=== PATIENT | male | born 1950 | race Caucasian/White ===

== ENCOUNTER → 2016-10-20 | Outpatient (CLI) | payer OTHER ==
[~2016-10-20] MED LIST: FOLIC ACID 11 MG/TA1 PO; LOPRESSOR 550 MG/TAB PO; MAG-AL LIQUID 230 ML PO; MULTI VITAMINS1 TAB PO; NORVASC 10MG10 MG PO; SEROQUEL 2525 MG/TAB PO; SEROQUEL50 MG PO; THIAMINE 1100 MG/TAB PO; ZESTRIL 20MG TA20 MG PO
[2016-10-20 14:00] LABS: HEMATOCRIT 40.8 % (42.0-52.0); HEMOGLOBIN 13.8 g/dl (13.5-18.0); MEAN CELL VOLUME 97 fl (80.0-100.0); MEAN CORPUSCULAR HEMOGLOBIN 33 pg (27.0-31.0); MEAN CORPUSCULAR HGB CONC 34 g/dl (33.0-37.0); MEAN PLATELET VOLUME 11.2 fl (7.4-10.4); PLATELET COUNT 251 K/mm3 (130-400); RED BLOOD COUNT 4.21 M/mm3 (4.20-5.60); REDCELL DISTRIBUTION WIDTH-CV 12.7 % (11.5-14.5); WHITE BLOOD COUNT 9.6 K/mm3 (4.8-10.8)
[2016-10-20 14:13] LABS: CALCIUM 9.7 mg/dL (8.4-10.2); CREATININE, serum 1.61 mg/dL (0.66-1.25); POTASSIUM 4.9 mmol/L (3.4-5.0)
== END ==
LOC: COL.LAB 13:33
DX: R03.0 Elevated blood-pressure reading, without diagnosis of hypertension (principal); R53.1 Weakness

== ENCOUNTER → 2016-10-30 | Outpatient (CLI) | payer OTHER ==
[2016-10-30 10:45] LABS: ADJUSTED CALCIUM 9.2 mg/dL (8.4-10.2); ALBUMIN 4.5 gm/dL (3.5-5.0); BILIRUBIN,TOTAL 0.6 mg/dL (0.0-1.0); CALCIUM 9.6 mg/dL (8.4-10.2); CREATININE, serum 1.45 mg/dL (0.66-1.25); POTASSIUM 4.9 mmol/L (3.4-5.0); TOTAL PROTEIN 7.7 gm/dL (6.4-8.2)
[2016-10-30 11:14] LABS: THYROID STIMULATING HORMONE 1.36 uIU/mL (0.465-4.680)
== END ==
LOC: COL.LAB 09:26
DX: I12.9 Hypertensive chronic kidney disease with stage 1 through stage 4 chronic kidney disease, or unspecified chronic kidney disease (principal); G62.9 Polyneuropathy, unspecified

== ENCOUNTER 2016-11-09 18:39 | Emergency (ER) | payer OTHER ==
[~2016-11-09] VITALS: Ht 193 cm; Wt 81.8 kg
[2016-11-09 18:44] VITALS: BP 178/84; TEMP 97.8
[2016-11-09 22:04] VITALS: PULSE 65
== END 2016-11-09 22:04 | disposition home or self-care (01) ==
LOC: COL.ER 18:39
DX: S16.1XXA Strain of muscle, fascia and tendon at neck level, initial encounter (principal); S46.911A Strain of unspecified muscle, fascia and tendon at shoulder and upper arm level, right arm, initial encounter; M79.621 Pain in right upper arm; V43.52XA Car driver injured in collision with other type car in traffic accident, initial encounter; Y92.410 Unspecified street and highway as the place of occurrence of the external cause

== ENCOUNTER → 2017-02-23 | Outpatient (CLI) | payer OTHER ==
[2017-02-23 11:35] LABS: HEMATOCRIT 39.9 % (42.0-52.0); HEMOGLOBIN 12.9 g/dl (13.5-18.0); MEAN CELL VOLUME 100 fl (80.0-100.0); MEAN CORPUSCULAR HEMOGLOBIN 32 pg (27.0-31.0); MEAN CORPUSCULAR HGB CONC 32 g/dl (33.0-37.0); MEAN PLATELET VOLUME 11.4 fl (7.4-10.4); PLATELET COUNT 216 K/mm3 (130-400); RED BLOOD COUNT 3.99 M/mm3 (4.20-5.60); REDCELL DISTRIBUTION WIDTH-CV 12.5 % (11.5-14.5); WHITE BLOOD COUNT 8.4 K/mm3 (4.8-10.8)
[2017-02-23 11:36] LABS: ADJUSTED CALCIUM 9.2 mg/dL (8.4-10.2); ALBUMIN 4.3 gm/dL (3.5-5.0); BILIRUBIN,TOTAL 0.5 mg/dL (0.0-1.0); CALCIUM 9.4 mg/dL (8.4-10.2); CREATININE, serum 1.17 mg/dL (0.66-1.25); POTASSIUM 4.1 mmol/L (3.4-5.0); TOTAL PROTEIN 7.8 gm/dL (6.4-8.2)
== END ==
LOC: COL.LAB 10:49
DX: I10 Essential (primary) hypertension (principal); R09.89 Other specified symptoms and signs involving the circulatory and respiratory systems

== ENCOUNTER → 2017-04-14 | Outpatient (CLI) | payer MEDICARE, OTHER | LOC: COL.VAS 09:12 | DX: I70.0 Atherosclerosis of aorta (principal) ==

== ENCOUNTER → 2017-06-30 | Outpatient (CLI) | payer MEDICARE | LOC: COL.RAD 10:44 | DX: I77.1 Stricture of artery (principal); I70.203 Unspecified atherosclerosis of native arteries of extremities, bilateral legs; I70.92 Chronic total occlusion of artery of the extremities; M47.816 Spondylosis without myelopathy or radiculopathy, lumbar region | CPT/HCPCS: Q9967 ==

== ENCOUNTER 2017-07-06 07:37 | Day surgery (SDC) | payer MEDICARE ==
[~2017-07-06] VITALS: Ht 193.1 cm; Wt 69.0 kg
[2017-07-06] VITALS (11 sets, daily range): BP systolic 117–166; BP diastolic 81–103; PULSE 62–81; TEMP 97.4
[2017-07-06] MEDS ORDERED: NORVASC 10MG10 MG PO (08:33)
[2017-07-06] MEDS ORDERED: LOPRESSOR 550 MG/TAB PO (08:34)
[2017-07-06 08:37] LABS: HEMATOCRIT 46.3 % (42.0-52.0); HEMOGLOBIN 15.4 g/dl (13.5-18.0); MEAN CELL VOLUME 96 fl (80.0-100.0); MEAN CORPUSCULAR HEMOGLOBIN 32 pg (27.0-31.0); MEAN CORPUSCULAR HGB CONC 33 g/dl (33.0-37.0); MEAN PLATELET VOLUME 11.6 fl (7.4-10.4); PLATELET COUNT 226 K/mm3 (130-400); RED BLOOD COUNT 4.83 M/mm3 (4.20-5.60); REDCELL DISTRIBUTION WIDTH-CV 12.6 % (11.5-14.5)
[2017-07-06 08:40] LABS: PROTHROMBIN TIME 11.7 SECONDS (9.7-12.8)
[2017-07-06 09:08] LABS: CREATININE, serum 1.16 mg/dL (0.66-1.25)
== END 2017-07-06 16:27 | disposition home or self-care (01) ==
LOC: COL.CAR 07:37
PROVIDERS: Radiology Diagnostic Radiology
DX: I70.213 Atherosclerosis of native arteries of extremities with intermittent claudication, bilateral legs (principal); I77.1 Stricture of artery; I10 Essential (primary) hypertension; I73.9 Peripheral vascular disease, unspecified
CPT/HCPCS: J1644; J2250; J2405; J2704; J3010; J7030; J7120; Q9967

== ENCOUNTER 2018-01-07 19:22 | Emergency (ER) | payer MEDICARE ==
[~2018-01-07] VITALS: Ht 193 cm; Wt 72.7 kg
[2018-01-07 19:29] VITALS: TEMP 98
[2018-01-07 19:56] LABS: BASO # 0.1 (0.0-0.2); BASO % 0.6 % (0.0-2.0); EOS # 0.1 (0.0-0.7); EOS % 0.9 % (0-4.0); GRAN # 8.4 (1.4-6.5); GRAN % 76.2 % (42.2-75.2); HEMOGLOBIN 10.8 g/dl (13.5-18.0); LYMPH # 1.5 (1.2-3.4); LYMPH % 13.5 % (20.0-51.0); MEAN CELL VOLUME 94 fl (80.0-100.0); MEAN CORPUSCULAR HEMOGLOBIN 32 pg (27.0-31.0); MEAN CORPUSCULAR HGB CONC 34 g/dl (33.0-37.0); MEAN PLATELET VOLUME 13.8 fl (7.4-10.4); MONO # 0.9 (0.1-0.6); PLATELET COUNT 238 K/mm3 (130-400); RED BLOOD COUNT 3.37 M/mm3 (4.20-5.60); REDCELL DISTRIBUTION WIDTH-CV 15.9 % (11.5-14.5)
[2018-01-07 19:57] LABS: HEMATOCRIT 31.6 % (42.0-52.0)
[2018-01-07 20:07] LABS: ALBUMIN 3.9 gm/dL (3.5-5.0); BILIRUBIN,TOTAL 19.4 mg/dL (0.0-1.0); C-REACTIVE PROTEIN 3.2 mg/dL (0.0-0.9); CALCIUM 9.4 mg/dL (8.4-10.2); CREATININE, serum 1.63 mg/dL (0.66-1.25); TOTAL PROTEIN 8.1 gm/dL (6.4-8.2)
[2018-01-07 21:50] VITALS: BP 132/76; PULSE 92
== END 2018-01-07 21:50 | disposition home or self-care (01) ==
LOC: COL.ER 19:22
PROVIDERS: Family Medicine
DX: K83.1 Obstruction of bile duct (principal); K86.9 Disease of pancreas, unspecified
CPT/HCPCS: J2405; J7030; Q9967

== ENCOUNTER 2018-01-10 13:34 | Day surgery (SDC) | payer MEDICARE ==
[2018-01-10] VITALS (7 sets, daily range): BP systolic 111–154; BP diastolic 73–81; PULSE 81–116; TEMP 97.3–98.1
[~2018-01-10] VITALS: Ht 193 cm; Wt 65.7 kg
== END 2018-01-10 17:30 | disposition home or self-care (01) ==
LOC: SDCO 13:34
DX: K83.1 Obstruction of bile duct (principal); K83.8 Other specified diseases of biliary tract; K86.89 Other specified diseases of pancreas; I12.9 Hypertensive chronic kidney disease with stage 1 through stage 4 chronic kidney disease, or unspecified chronic kidney disease; N18.9 Chronic kidney disease, unspecified; D63.1 Anemia in chronic kidney disease
CPT/HCPCS: C1769; C2625; J2405; J2704; J3010; J7030; Q9967

== ENCOUNTER 2018-02-17 13:48 | Observation (INO) | payer MEDICARE ==
[~2018-02-17] VITALS: Ht 162.6 cm; Wt 59.5 kg
[2018-02-17 14:27] LABS: BASO % 0.6 % (0.0-2.0); EOS # 0.1 (0.0-0.7); GRAN % 70.4 % (42.2-75.2); HEMOGLOBIN 10.1 g/dl (13.5-18.0); LYMPH # 1.4 (1.2-3.4); LYMPH % 19.6 % (20.0-51.0); MEAN CELL VOLUME 98 fl (80.0-100.0); MEAN CORPUSCULAR HEMOGLOBIN 32 pg (27.0-31.0); MEAN CORPUSCULAR HGB CONC 33 g/dl (33.0-37.0); MEAN PLATELET VOLUME 10.6 fl (7.4-10.4); MONO # 0.6 (0.1-0.6); MONO % 8.1 % (1.7-9.3); PLATELET COUNT 227 K/mm3 (130-400); RED BLOOD COUNT 3.15 M/mm3 (4.20-5.60)
[2018-02-17 14:28] LABS: HEMATOCRIT 30.9 % (42.0-52.0)
[2018-02-17 14:34] LABS: ALBUMIN 3.8 gm/dL (3.5-5.0); BILIRUBIN,TOTAL 1.5 mg/dL (0.0-1.0); CALCIUM 9.1 mg/dL (8.4-10.2); CREATININE, serum 0.89 mg/dL (0.66-1.25); POTASSIUM 3.4 mmol/L (3.4-5.0); TOTAL PROTEIN 7.4 gm/dL (6.4-8.2)
[2018-02-17] MEDS ORDERED: PHENERGAN 25 TA25 MG PO ×2 (15:05)
[2018-02-17] MEDS ORDERED: PERCOCET 325 MG1 TA2 PO (15:05)
[2018-02-17] MEDS ORDERED: PRINIVIL20 MG PO (17:34)
[2018-02-17 18:27] VITALS: BP 190/78; PULSE 79; TEMP 98.9
[2018-02-17 21:39] VITALS: BP 159/88; PULSE 96; TEMP 98.3
[2018-02-18 01:26] VITALS: BP 160/77; PULSE 86; TEMP 98.3
[2018-02-18 04:41] VITALS: BP 170/74; PULSE 83; TEMP 98
[2018-02-18 06:19] LABS: BASO % 0.5 % (0.0-2.0); EOS # 0.1 (0.0-0.7); EOS % 1.8 % (0-4.0); GRAN # 3.3 (1.4-6.5); GRAN % 53.6 % (42.2-75.2); LYMPH % 31.7 % (20.0-51.0); MEAN CELL VOLUME 98 fl (80.0-100.0); MEAN CORPUSCULAR HGB CONC 32 g/dl (33.0-37.0); MEAN PLATELET VOLUME 11.5 fl (7.4-10.4); MONO # 0.8 (0.1-0.6); MONO % 12.2 % (1.7-9.3); PLATELET COUNT 168 K/mm3 (130-400); RED BLOOD COUNT 2.87 M/mm3 (4.20-5.60); REDCELL DISTRIBUTION WIDTH-CV 13.6 % (11.5-14.5)
[2018-02-18 06:27] LABS: MEAN CORPUSCULAR HEMOGLOBIN 31 pg (27.0-31.0)
[2018-02-18 06:36] LABS: ALBUMIN 3.2 gm/dL (3.5-5.0); BILIRUBIN,TOTAL 1.3 mg/dL (0.0-1.0); CALCIUM 8.4 mg/dL (8.4-10.2); CREATININE, serum 0.73 mg/dL (0.66-1.25); POTASSIUM 3.3 mmol/L (3.4-5.0); TOTAL PROTEIN 6.4 gm/dL (6.4-8.2)
[2018-02-18 08:19] VITALS: BP 154/77; BP 154/778; PULSE 74; TEMP 97.8
[2018-02-18 11:33] VITALS: BP 151/75; PULSE 93; TEMP 97.8
[2018-02-18 16:05] VITALS: BP 159/89; PULSE 88; TEMP 98
[2018-02-18 20:00] VITALS: BP 165/79; PULSE 85; TEMP 98.4
[2018-02-19] VITALS: BP 165/63; PULSE 83; TEMP 98.2
[2018-02-19 04:00] VITALS: BP 156/72; PULSE 82; TEMP 98
[2018-02-19 06:20] LABS: BASO % 0.5 % (0.0-2.0); EOS # 0.1 (0.0-0.7); EOS % 2.5 % (0-4.0); GRAN # 3.2 (1.4-6.5); GRAN % 56.7 % (42.2-75.2); LYMPH # 1.7 (1.2-3.4); LYMPH % 30.6 % (20.0-51.0); MEAN CELL VOLUME 97 fl (80.0-100.0); MEAN CORPUSCULAR HGB CONC 33 g/dl (33.0-37.0); MEAN PLATELET VOLUME 11.6 fl (7.4-10.4); MONO # 0.5 (0.1-0.6); MONO % 9.5 % (1.7-9.3); PLATELET COUNT 168 K/mm3 (130-400); RED BLOOD COUNT 2.86 M/mm3 (4.20-5.60); REDCELL DISTRIBUTION WIDTH-CV 13.4 % (11.5-14.5)
[2018-02-19 06:37] LABS: ALBUMIN 3.1 gm/dL (3.5-5.0); BILIRUBIN,TOTAL 1.1 mg/dL (0.0-1.0); CALCIUM 8.3 mg/dL (8.4-10.2); CREATININE, serum 0.7 mg/dL (0.66-1.25); MAGNESIUM 1.7 mg/dL (1.6-2.3); POTASSIUM 3.1 mmol/L (3.4-5.0); TOTAL PROTEIN 6.3 gm/dL (6.4-8.2)
[2018-02-19 06:41] LABS: HEMATOCRIT 27.8 % (42.0-52.0); HEMOGLOBIN 9.1 g/dl (13.5-18.0); MEAN CORPUSCULAR HEMOGLOBIN 32 pg (27.0-31.0)
[2018-02-19 07:20] VITALS: BP 154/77; PULSE 84; TEMP 97.2
== END 2018-02-19 12:26 | disposition home or self-care (01) ==
LOC: COL.ER 13:48 → MEDICAL 16:13
PROVIDERS: Emergency Medicine; Physician Assistant
DX: C25.9 Malignant neoplasm of pancreas, unspecified (principal); D64.9 Anemia, unspecified; E87.6 Hypokalemia; E16.2 Hypoglycemia, unspecified; E87.1 Hypo-osmolality and hyponatremia; R00.0 Tachycardia, unspecified; I10 Essential (primary) hypertension; F17.210 Nicotine dependence, cigarettes, uncomplicated; I73.9 Peripheral vascular disease, unspecified
CPT/HCPCS: 99232-AI; 99239; G0378; J0360; J1170; J1650; J2550; J3475; J7030